=== PATIENT | male | born 1985 | race Caucasian/White ===

== ENCOUNTER 2021-01-19 21:03 | Emergency (ER) | payer SELFPAY ==
[2021-01-19] MEDS ORDERED: Ketorolac 30 MG/ML SDV IM ONE (22:29)
[2021-01-19] MEDS ORDERED: Clindamycin HCl 150 MG Cap PO ONE (22:31)
--- NOTE | 2021-01-19 22:38 | EDM.PDOC ---
ED HPI GENERAL MEDICAL PROBLEM - General Chief Complaint: ENT Problem Stated Complaint: TOOTH ACHE Time Seen by Provider: 01/19/21 21:59 Source of Information: Reports: Patient History Limitations: Reports: No Limitations - History of Present Illness INITIAL COMMENTS - FREE TEXT/NARRATIVE: 35 yo male presents with upper left tooth pain. He has two broken teeth with caries. pain mildly present the last week but worsened over the last 24 hours. afebrile. generally feels health Left Tooth/Teeth Pain Score (Numeric/FACES): 10 - Related Data Allergies Allergy/AdvReac Type Severity Reaction Status Date / Time butorphanol [From Stadol] Allergy Swelling Verified 01/19/21 22:01 Home Meds: Home Meds NK [No Known Home Meds] 01/19/21 [History] Past Medical History - Infectious Disease History Infectious Disease History: Reports: Chicken Pox - Past Surgical History HEENT Surgical History: Reports: Other (See Below) Other HEENT Surgeries/Procedures: jaw surgery Social & Family History - Family History Family Medical History: No Pertinent Family History - Tobacco Use Tobacco Use Status *Q: Current Every Day Tobacco User Years of Tobacco use: 15 Packs/Tins Daily: 1 - Caffeine Use Caffeine Use: Reports: Energy Drinks, Soda - Recreational Drug Use Recreational Drug Use: No ED ROS ENT - Review of Systems Review Of Systems: See Below Constitutional: Denies: Fever, Chills, Fatigue HEENT: Reports: Dental Pain Respiratory: Denies: Shortness of Breath, Wheezing Cardiovascular: Denies: Chest Pain ED EXAM, ENT - Physical Exam Exam: See Below Exam Limited By: No Limitations General Appearance: Alert, WD/WN, No Apparent Distress Mouth/Throat: Dental Pain, Dental Tenderness, Gum Swelling (left upper around teeth 11, 12, 13) Course - Vital Signs Last Recorded V/S: Last Vital Signs Temp 36.4 C 01/19/21 22:03 Pulse 72 01/19/21 22:03 Resp 16 01/19/21 22:03 BP 179/92 H 01/19/21 22:03 Pulse Ox 94 L 01/19/21 22:03 - Orders/Labs/Meds Orders: Active Orders 24 hr Category Date Time Status clindamycin HCL [Cleocin] Med 01/19/21 22:31 Once 450 mg PO ONETIME ONE Medication Orders Clindamycin HCl (Clindamycin Hcl 150 Mg Cap) 450 mg PO ONETIME ONE Stop: 01/19/21 22:32 Meds: Medications Generic Name Dose Route Start Last Admin Trade Name Pina PRN Reason Stop Dose Admin Clindamycin HCl 450 mg 01/19/21 22:31 Clindamycin Hcl 150 Mg Cap PO 01/19/21 22:32 ONETIME ONE Discontinued Medications Generic Name Dose Route Start Last Admin Trade Name Pina PRN Reason Stop Dose Admin Ketorolac Tromethamine 60 mg 01/19/21 22:29 Ketorolac 30 Mg/Ml Sdv IM 01/19/21 22:30 ONETIME ONE - Re-Assessments/Exams Free Text/Narrative Re-Assessment/Exam: 01/19/21 22:36 IM pain management and initial antibiotic dose given in ER. will discharge on 10 day coarse of clindamycin and pain management. Departure - Departure Time of Disposition: 22:38 Disposition: Home, Self-Care 01 Condition: Good Clinical Impression: Dental abscess, Dental caries extending into dentin - Discharge Information *PRESCRIPTION DRUG MONITORING PROGRAM REVIEWED*: Not Applicable *COPY OF PRESCRIPTION DRUG MONITORING REPORT IN PATIENT MABEL: Not Applicable Instructions: Dental Caries, Adult Referrals: PCP,None [Primary Care Provider] - Additional Instructions: follow-up with dentist Clindamycin 600 mg every 12 hours fro 10 days ketorolac 10 mg every 6 hours for pain may also take tyelnol 1000 mg every 6 hours soft foods that are not cold or hot Sepsis Event Note (ED) - Evaluation Sepsis Screening Result: No Definite Risk - Focused Exam Vital Signs: Vital Signs Temp Pulse Resp BP Pulse Ox 01/19/21 22:03 36.4 C 72 16 179/92 H 94 L 01/19/21 21:52 36.4 C 72 16 179/92 H 94 L - My Orders Last 24 Hours: My Active Orders 01/19/21 22:31 clindamycin HCL [Cleocin] 450 mg PO ONETIME ONE - Assessment/Plan Last 24 Hours: My Active Orders 01/19/21 22:31 clindamycin HCL [Cleocin] 450 mg PO ONETIME ONE
[2021-01-19] MEDS ORDERED: Ketorolac 30 MG/ML SDV ONE (22:46)
== END 2021-01-19 23:01 | disposition home or self-care (01) ==
LOC: JP.ED 21:03
DX: K04.7 Periapical abscess without sinus (principal); K02.9 Dental caries, unspecified; K00.7 Teething syndrome; Z72.0 Tobacco use
CPT/HCPCS: 96372; 99282; A9270; J1885